=== PATIENT | female | born 1985 | race Caucasian/White ===

== ENCOUNTER 2016-11-18 02:26 | Inpatient (IN) | payer OTHER ==
[~2016-11-18] VITALS: Ht 170.2 cm; Wt 127.9 kg
[~2016-11-18 02:26] MED LIST: LEXAPRO10 M1 PO; PROTONIX40 M3 PO; XANAX0.5 M1 PO
--- NOTE | 2016-11-18 13:53 | Admission Core Measures ---
Admission Lab Results I reviewed the following labs: Laboratory Tests 11/18 758 Urines Urine Test NEGATIVE Admission Meds I reviewed the following Meds: Current Medications Sig/Precious Start time Last Medication Dose Stop Time Status Admin Cefazolin Sodium 2,000 MG ONCE 11/18 0000 NR (Kefzol-Ancef Inj) 11/18 2358 Dexamethasone 10 MG ONCE 11/18 NR (Decadron) 11/18 2358 Heparin Sodium 5,000 UNIT ONCE 11/18 NR (Porcine) 11/18 2358 Acute Coronary Syndrome Inclusion Criteria ACS Diagnosis No Inpatient Core Measures LDL Reminder: If No, please order W/I first 24hr of stay Congestive Heart Failure Inclusion Criteria CHF Diagnosis No Cerebrovascular accident Inclusion Criteria CVA/TIA Diagnosis No Inpatient Core Measures Bedside Swallow Eval Reminder: If BSE failed, place ST order Antithrombotic Reminder: Order Antithrombotic Medication by end of day 2 Antithrombotic Reminder: Document Reason Antithrombotic Not ordered by end of day 2 AFIB/Flutter Reminder: If Present, add to problem list AFIB/Flutter Reminder: Order Anticoag Medication for pts with AFIB/Flutter Atherosclerosis Reminder: If Present, add to problem list LDL Reminder: If No, please order W/I first 24hr of stay PT Order Reminder: If No, please order Venous thromboembolism Inpatient Core Measures VTE Risk Factors: Obesity, Surgery [facility] prophylaxis d/t No contraindications No VTE Pharm Prophylaxis d/t No contraindications Inclusion Criteria - Per Current guidelines, there needs to be overlap - treatment for the first 5 days of Warfarin therapy. - Parenteral Anticoagulation (IV or SC) needs to be - given along with Warfarin therapy. VTE Diagnosis No VTE Type NONE VTE Confirmed by (Test) NONE Problem List As ranked by this Provider includes Assessment & Plan 1. S/P gastric bypass HOME MEDS Home Med List Alprazolam (Xanax) 0.5 MG TABLET 1 TAB PO DAILY NEEDED ANXIETY (Reported) Escitalopram Oxalate (Lexapro) 10 MG TABLET 1.5 TAB PO DAILY ANXIETY ( Reported) Pantoprazole Sodium (Protonix) 40 MG TABLET.DR 1 TAB PO DAILY GERD (Reported)
--- NOTE | 2016-11-18 14:09 | Operative Report ---
Operative/Inv Procedure Report Surgery Date: 11/18/16 Name of Procedure: Laparoscopic Jeanne-en-Y gastric bypass Pre-Operative Diagnosis: Severe morbid obesity BMI 47, sleep apnea and GERD Post-Operative Diagnosis: Severe morbid obesity BMI 47 sleep apnea and GERD Estimated Blood Loss: less than 50ml Surgeon/Production Planner Scheduler: JACEK EDWARD,BRITNEY Chiang MD first mate Anesthesia: general endotracheal tube Drains: A NORRIS drain was placed over the gastric bypass coming out the right upper quadrant. A second NORRIS drain was placed over the judgment ejection O anastomosis and brought at the right midabdomen. Specimens: No specimen Complications: Complication Condition: Stable Operative Indication: This is a 31-year-old female with a BMI of 47 sleep apnea and GERD was undergone workup and evaluation for laparoscopic Jeanne-en-Y gastric bypass. He understands risks potential complications which include bleeding infection deep venous thrombosis pulmonary embolism injury to the esophagus stomach small intestine large intestine. Among other potential complications possible mortality. There can also be small bowel obstruction. Operative/Procedure Note Note: The patient was brought into the operating room and placed in the operating room table in supine position. After the administration of general anesthesia the patient was prepped and draped in the sterile fashion. Local incision was made below the umbilicus down to the fascia. A transverse incision is made in the fashion of 0 Vicryl sutures placed in the fascia. A 12 mm blunt-tipped 400 is placed in the abdomen the abdomen was insufflated with CO2 gas. A 5 mm port is placed in the right upper quadrant 25 mm ports in the left upper quadrant. A 12 mm port is postoperative between the xiphoid and the umbilicus and a 12 mm port in the right midabdomen. The abdomen was insufflate with CO2 gas there were no adhesions. The fatty omentum was divided with a Harmonic scalpel up to the transverse colon and a portion of the gastrocolic ligament was taken down as well. The angle of Hiss was then taken down with the Harmonic or sinus incision device. The NG tube was removed from the stomach. Along the lesser curve of the stomach window was created in the perigastric technique. NG tube and all objects were removed from the esophagus and stomach. It was performed with approximately 4 cm from the GE junction with a purple cartridge 45 mm stapler. A second cartridge was fired 45 mm. The wall tube and passed down and the the 60 mm purple cartridge was a stapled alongside. Her firings of a 60 mm peripheral cartridge performed. In pouch was created. The stasis was achieved with electrocautery. Attention was paid to the transverse mesocolon which was elevated. Ligament of Treitz is identified in follow-up for 50 cm. No please created in the mesentery and a 10 cartridge was inserted closed fired along the dividing the small bowel. 2 hemoclips were placed on the edge of the distal small bowel. The distal limb or intended jeanne limb was brought medial and the biliopancreatic limb was placed lateral. An opening was created in the antimesenteric border of the Jeanne limb and opening was created in the anterior aspect of the stomach pouch. A purple cartridge 45 mm was inserted to 30 mm and both the small bowel and the stomach was closed and fired creating anastomosis. The angle of doom was closed with a 2-0 silk 2-0 Vicryl suture. There was a serosal tear approximately 5 cm from the gastrojejunal anastomosis site this was oversewn was sewn over with 2 interrupted 2-0 silk suture with the seromuscular layer. A gastrojejunal anastomosis is created and oversewn and closed over a bougie with a 20V lock absorbable suture. The air leak test is performed with both air under a layer of water and methylene blue. The small bowel is them run a total of 125 cm 2 clips were placed on the distal bowel one of the proximal. An opening is created in the antimesenteric border of the Jeanne limb and the biliopancreatic. A 10 cartridge 60 mm was inserted into the biliopancreatic limb from proximal to distal from the Jeanne limb from distal to proximal. The sutures placed in the remaining angle of the open bowel. A 10 cartridge was then inserted closed and fired the middle was closed with 3 interrupted 2-0 silk sutures. 6010 cartridge was used to staple across the anastomosis and close it. A 2-0 Tycron was then used to close the jejunojejunal mesentery. There was excellent hemostasis the one 4 x 4 was removed. A NORRIS was placed over the gastrojejunal brought out the right upper quadrant NORRIS was placed over the jejunojejunal and brought out the right midabdomen. Sharifa liver retractor was removed the ports removed under direct vision there was no evidence of bleeding. There is excellent hemostasis. . The umbilicus is closed with 2 interrupted 0 Vicryl sutures. Her sewn in with 2-0 nylon. Can was closed with 4-0 Monocryl. Steri-Strips in place and the wounds had surgical skin wound. The patient developed procedure well.
[2016-11-18 17:03] VITALS: BP 118/88
--- NOTE | 2016-11-18 21:55 | PN- Bariatrics ---
Subjective Subjective: POSTOP CHECK tolerating stg 1 diet, no n/v, no cp/sob, oob to bathroom, +voids, no belching, no flatus, pain controlled with meds Objective Vital Signs and I&Os Vital Signs Date Time Temp Pulse Resp B/P B/P Pulse O2 O2 Flow FiO2 Mean Ox Delivery Rate 11/19 2107 Room Air 11/18 1702 97 Nasal 1.0L Cannula 11/18 1702 97.8 66 18 118/88 97 Nasal 1.0L Cannula Physical Exam: GEN: NAD CARD: s1s2 RRR PULM: CTAB ABD: soft,obese, dressings with some bloody staining, jpx2-serosang drainage, ttp thoughout EXT: calves soft nt bl Current Medications: Current Medications Sig/Precious Start time Last Medication Dose Route Stop Time Status Admin Acetaminophen 1,000 MG .STK-MED ONE 11/18 725 DC IV 11/18 726 Acetaminophen/ 15 ML Q6P PRN 11/18 1700 AC Hydrocodone Bitart PO Alprazolam 0.5 MG TID PRN 11/18 1415 AC PO 11/25 1414 Cefazolin Sodium 1,000 MG IQ8 11/18 1600 AC 11/18 IV 11/19 0001 1932 Cefazolin Sodium 2,000 MG ONCE 11/18 0000 DC IV 11/18 235 Dexamethasone 10 MG ONCE 11/18 0000 DC IV 11/18 235 Escitalopram Oxalate 15 MG DAILY 11/19 1000 AC PO Fentanyl Citrate 250 MCG .STK-MED ONE 11/18 725 DC IM 11/18 07 Heparin Sodium 5,000 UNIT Q8 11/18 1400 AC 11/18 (Porcine) SC 210 Heparin Sodium 5,000 UNIT ONCE 11/18 0000 DC (Porcine) SC 11/18 235 Hydromorphone HCl 1 MG Q4P PRN 11/18 1700 AC 05 IV 2109 Midazolam HCl 2 MG .STK-MED ONE 11/18 725 DC IM 11/18 726 Ondansetron HCl 4 MG Q6P PRN 11/18 1700 AC IV Ondansetron HCl 8 MG .STK-MED ONE 11/18 725 DC IM 11/18 07 Pantoprazole Sodium 40 MG DAILY 11/19 1000 AC IV Potassium Chloride 20 MEQ .Q8H 11/18 1700 AC 11/18 Dextrose/Sodium 1,000 ML IV 1713 Chloride Simethicone 40 MG Q6P PRN 11/18 1700 AC PO Assessment/Plan Assessment/Plan A: POD0 sp lap dread-en-y gastric bypass, with postop pain, stable. P: stage 1 wanda diet, npo pmn, ugi in am, advance if UGI ok hep sq prn pain meds oob, ambulate dc planning Core Measures/Miscellaneous Venous Thromboembolism VTE Risk Factors: Surgery VTE Contraindications: No Contraindications VTE Diagnosis: No VTE Type: NONE VTE Confirmed by (Test): NONE Beta Ritu Is Beta Ritu a Home Med? No Antibiotics Is Patient on Antibiotics? Yes If Yes: prophylaxis
[2016-11-18 21:59] VITALS: BP 136/84
[2016-11-19 01:11] VITALS: BP 130/89
--- NOTE | 2016-11-19 07:58 | PN- Bariatrics ---
See Addendum Subjective Subjective: She reports more pain than she anticipated. She has been out of bed, ambulating. Currently npo for upper gi study. Objective Vital Signs and I&Os Vital Signs Date Time Temp Pulse Resp B/P B/P Pulse O2 O2 Flow FiO2 Mean Ox Delivery Rate 11/19 0111 98.0 65 22 130/89 95 Room Air 11/18 2159 97.8 73 20 136/84 95 Nasal Cannula 11/18 2108 Room Air 11/18 2100 95 Room Air 11/18 170 97 Nasal 1.0L Cannula 11/18 170 97.8 66 18 118/88 97 Nasal 1.0L Cannula 11/18 170 97 Nasal 1.0L Cannula Intake & Output 11/19 0800 11/19 0000 11/18 1600 11/18 0800 11/18 0000 11/17 1600 Intake Total 4190 Output Total 588 Balance 3602 Intake, IV 3950 Intake, Oral 240 Output, 188 Drainage Output, Urine 400 Patient 282 lb Weight Weight Reported by Patient Measurement Method Current Medications: Current Medications Sig/Precious Start time Last Medication Dose Route Stop Time Status Admin Acetaminophen/ 15 ML Q6P PRN 11/18 1700 AC Hydrocodone Bitart PO Alprazolam 0.5 MG TID PRN 11/18 1415 AC PO 11/25 1414 Cefazolin Sodium 1,000 MG 0330 11/19 0330 DC 11/19 IV 11/19 0331 0406 Cefazolin Sodium 1,000 MG IQ8 11/18 1600 DC 11/18 IV 11/19 0001 1932 Cefazolin Sodium 2,000 MG ONCE 11/18 0000 DC IV 11/18 2359 Dexamethasone 10 MG ONCE 11/18 0000 DC IV 11/18 2359 Escitalopram Oxalate 15 MG DAILY 11/19 1000 AC PO Heparin Sodium 5,000 UNIT Q8 11/18 1400 AC 11/19 (Porcine) SC 0514 Heparin Sodium 5,000 UNIT ONCE 11/18 0000 DC (Porcine) SC 11/18 2359 Hydromorphone HCl 1 MG Q4P PRN 11/18 1700 AC 11/19 IV 0701 Ondansetron HCl 4 MG Q6P PRN 11/18 1700 AC IV Pantoprazole Sodium 40 MG DAILY 11/19 1000 AC IV Potassium Chloride 20 MEQ Q8H 11/19 0200 AC 11/19 Dextrose/Sodium 1,000 ML IV 0217 Chloride Potassium Chloride 20 MEQ .Q8H 11/18 1700 DC 11/18 Dextrose/Sodium 1,000 ML IV 1713 Chloride Simethicone 40 MG Q6P PRN 11/18 1700 AC PO Results Last 48 Hours of Labs: Laboratory Tests 11/19 11/18 0722 0759 Chemistry Sodium Pending Potassium Pending Chloride Pending Carbon Dioxide Pending Anion Gap Pending BUN Pending Creatinine Pending BUN/Creatinine Ratio Pending Hematology CBC w Diff Pending WBC Pending RBC Pending Hgb Pending Hct Pending MCV Pending MCH Pending RDW Pending Plt Count Pending MPV Pending PUBS MCHC Pending Urines Urine Test NEGATIVE Assessment/Plan Assessment/Plan This 31 year old male with hx severe morbid obesity (bmi 47), conrado, gerd, who is now POD#1 s/p laparoscopic Jeanne-en-Y gastric bypass currently npo awaiting upper gi study resume stage 1 bariatric diet once upper gi study reviewed pain control as ordered f/u labs and upper gi study protonix - gi ppx hep sc - dvt ppx oob/ambulation encouraged patient seen & examined with Core Measures/Miscellaneous Venous Thromboembolism VTE Risk Factors: Surgery VTE Contraindications: No Contraindications VTE Diagnosis: No VTE Type: NONE VTE Confirmed by (Test): NONE Beta Ritu Is Beta Ritu a Home Med? No Antibiotics Is Patient on Antibiotics? Yes If Yes: prophylaxis
[2016-11-19 08:06] VITALS: BP 132/92
[2016-11-19 08:39] LABS: ABSOLUTE BASOPHIL COUNT 0 /CUMM (0.0-0.2); ABSOLUTE EOSINOPHIL COUNT 0 /CUMM (0.0-0.7); ABSOLUTE GRANULOCYTE CT 10.6 /CUMM (1.4-6.5); ABSOLUTE LYMPH COUNT 1.6 /CUMM (1.2-3.4); ABSOLUTE MONOCYTE COUNT 0.7 /CUMM (0.10-0.60); BASOPHIL % 0.2 % (0.0-2.0); EOSINOPHIL % 0.1 % (0-5); GRANULOCYTE % 81.7 % (42.2-75.2); HEMATOCRIT 34.6 % (37-47); MEAN CORPUSCULAR HGB 26.6 PG (27.0-31.0); MEAN CORPUSCULAR HGB CONC 32.5 G/DL (33.0-37.0); MEAN CORPUSCULAR VOLUME 81.6 FL (81.0-99.0); MEAN PLATELET VOLUME 9.6 FL (7.4-10.4); PLATELET COUNT 223 /CUMM (130-400); RBC DISTRIBUTION WIDTH 15.4 % (11.5-14.5); RED BLOOD CELL CT 4.24 /CUMM (4.20-5.40)
--- NOTE | 2016-11-19 09:50 | Surg Short-stay <48hrs Dis Sum ---
Visit Information Visit Dates Admission Date: 11/18/16 Discharge Date: 11/20/16 Surgical Short Stay DC Summary Admission Diagnosis: Severe morbid obesity (BMI 47), sleep apnea and GERD Final Diagnosis: same, s/p Laparoscopic Jeanne-en-Y gastric bypass Procedure(s): Surgery Date: 11/18/16 Name of Procedure: Laparoscopic Jeanne-en-Y gastric bypass Summary/Significant Findings: Electively scheduled laparoscopic Jeanne-en-Y gastric bypass on 11/18/[address]Neil Unger for hx severe morbid obesity (bmi 47), sleep apnea, and GERD. Upper gi study done on post-op day #1 to rule out leak / obstruction. Restarted on a stage 1 bariatric diet. NORRIS drains were removed prior to discharge to home. No lovenox indicated at the time of discharge. Condition at Discharge: stable Discharge Disposition: home or self care Discharge instructions provided to patient/family: Yes Post discharge follow-up plan: one week follow up visit with Dr.Neil Unger discharge instructions provided
--- NOTE | 2016-11-19 10:03 | Patient Discharge Instructions ---
Discharge Instructions General Discharge Information You were seen/treated for: Severe morbid obesity (BMI 47), sleep apnea and GERD You had these procedures: Surgery Date: 11/18/16 Name of Procedure: Laparoscopic Jeanne-en-Y gastric bypass Watch for these problems: fever>101.3, increased pain, redness/swelling/drainage, dizziness, shortness of breath, chest pain No bath, but you may shower: Yes Other wound care: ok to remove outer dressings. leave white steri strips in place. expect drainage and use dry guaze dressing over previous drain site. Diet Continue normal diet: No Recommended Diet: Bariatric Additional DIET Information: weekly bariatric stage diet advancements as tolerated, as directed Activity Full Activity/No Limits: No Activity Self Limited: Yes Pounds, do NOT lift more than: 10 Other activity limits: no heavy lifting. no strenuous activity. Acute Coronary Syndrome Inclusion Criteria At DC or during hospital stay patient has or had the following: ACS DIAGNOSIS No Discharge Core Measures Meds if any: Prescribed or Continued at Discharge Meds if any: NOT Prescribed or Continued at Discharge Congestive Heart Failure Inclusion Criteria At DC or during hospital stay patient has or had the following: CHF DIAGNOSIS No Discharge Core Measures Meds if any: Prescribed or Continued at Discharge Meds if any: NOT Prescribed or Continued at Discharge Cerebrovascular accident Inclusion Criteria At DC or during hospital stay patient has or had the following: CVA/TIA Diagnosis No Discharge Core Measures Meds if any: Prescribed or Continued at Discharge Meds if any: NOT Prescribed or Continued at Discharge Venous thromboembolism Inclusion Criteria VTE Diagnosis No VTE Type NONE VTE Confirmed by (Test) NONE Discharge Core Measures - Per Current guidelines, there needs to be overlap - treatment for the first 5 days of Warfarin therapy. - If discharged on Warfarin prior to 5 days of - overlap therapy, the patient will need to be - assessed for post discharge needs including - *Post discharge parental anticoagulation - *Warfarin and/or parental anticoagulation education - *Follow up date to check INR post discharge At least 5 days overlap therapy as Inpatient No Meds if any: Prescribed or Continued at Discharge Note: Overlap Therapy is Warfarin and Anticoagulant Meds if any: NOT Prescribed or Continued at Discharge
[2016-11-19] MEDS ORDERED: HYDROCODON-ACET15 ML PO (10:04)
--- NOTE | 2016-11-19 10:29 | RADIOLOGY REPORT ---
EXAMINATION: FL UPPER GI SERIES CLINICAL INFORMATION: 31-year-old female status post gastric bypass surgery. COMPARISON: None TECHNIQUE: A single contrast upper GI series with fluoroscopy and spot imaging was performed. The patient ingested 30 mL of Gastroview contrast material without difficulty and was evaluated in the upright and recumbent positions. FINDINGS: The initial abdominal radiographs showed mild gaseous distention of bowel. Multiple surgical clips are present within the epigastric region and left abdomen. Drainage catheters project over the epigastric region and left mid abdomen. Intrauterine contraceptive device is present within the pelvis. Normal esophageal motility was observed with patient in the upright position. There was no significant delay in passage of contrast material through the gastric pouch, across the intact gastrojejunal anastomosis and into the nondilated jejunum. No contrast leakage into the peritoneal cavity. FLUOROSCOPY TIME: 27 seconds NUMBER OF IMAGES: 10 spot fluoroscopy images were saved in the electronic picture archive. IMPRESSION: Normal postoperative appearance of the gastric bypass with intact appearance of the gastrojejunal anastomosis. No contrast leakage.
[2016-11-19 15:06] VITALS: BP 132/92
[2016-11-19 22:29] VITALS: BP 120/70
[2016-11-20 07:15] VITALS: BP 118/68
--- NOTE | 2016-11-20 07:21 | PN- Bariatrics ---
Subjective Subjective: No complaints. Pain improving. Upper gi study negative for leak / obstruction yesterday. Tolerating stage 1 bariatric diet. No nausea. Passing flatus. +bm. Ambulating well. No dizziness. No shortness of breath. No chest pains. Voiding well. Objective Vital Signs and I&Os Vital Signs Date Time Temp Pulse Resp B/P B/P Pulse O2 O2 Flow FiO2 Mean Ox Delivery Rate 11/20 714 98.1 74 20 118/68 98 Room Air 11/19 2229 98.7 71 18 120/70 97 Room Air 11/19 1506 98.8 78 20 132/92 93 Room Air 11/19 0806 98.1 78 20 132/92 93 Room Air 11/19 0800 98 Room Air Intake & Output 11/20 0800 11/20 0000 11/19 1600 11/19 0800 11/19 0000 11/18 1600 Intake Total 400 1400 1050 4190 Output Total 90 600 110 588 Balance 310 465 791 7302 Intake, IV 095 142 1144 3950 Intake, Oral 600 0 240 Number 1 0 Bowel Movements Output, 90 110 188 Drainage Output, Urine 600 400 Patient 282 lb Weight Weight Reported by Patient Measurement Method Physical Exam: General - alert & oriented x 3. comfortable. no acute distress. Lungs - clear bilaterally. no w/r/r. Cardiac - s1s2. reg. Abdomen - soft. dressings c/d/i. expected mary-incisional tenderness. NORRIS drains with serosang drainage. Extremities - warm bilaterally. no c/c/e. calves soft and nontender b/l. Current Medications: Current Medications Sig/Precious Start time Last Medication Dose Route Stop Time Status Admin Acetaminophen/ 15 ML Q6P PRN 11/18 1700 AC 11/19 Hydrocodone Bitart PO 0917 Alprazolam 0.5 MG TID PRN 11/18 1415 AC PO 11/25 1414 Escitalopram Oxalate 15 MG DAILY 11/19 1000 AC 11/19 PO 0917 Heparin Sodium 5,000 UNIT Q8 11/18 1400 AC 11/20 (Porcine) SC 0621 Hydromorphone HCl 1 MG Q4P PRN 11/18 1700 AC 11/19 IV 1208 Ketorolac 30 MG Q6H 11/19 2200 AC 11/20 Tromethamine IV 0440 Ketorolac 30 MG Q6 11/19 1330 DC 11/19 Tromethamine IV 1559 Ondansetron HCl 4 MG Q6P PRN 11/18 1700 AC IV Pantoprazole Sodium 40 MG DAILY 11/19 1000 AC 11/19 IV 0917 Patient Medication 1 ED .STK-MED ONE 11/19 1420 DC Teaching ED 11/19 1421 Potassium Chloride 20 MEQ Q10H 11/19 0845 AC 11/20 Dextrose/Sodium 1,000 ML IV 0510 Chloride Potassium Chloride 20 MEQ Q8H 11/19 0200 DC 11/19 Dextrose/Sodium 1,000 ML IV 0217 Chloride Simethicone 40 MG Q6P PRN 11/18 1700 AC PO Results Last 48 Hours of Labs: Laboratory Tests 11/19 11/18 0722 0759 Chemistry Sodium (137 - 145 mmol/L) 138 Potassium (3.5 - 5.1 mmol/L) 3.9 Chloride (98 - 107 mmol/L) 106 Carbon Dioxide (22 - 30 mmol/L) 24 Anion Gap (5 - 16) 8 BUN (7 - 17 mg/dL) 9 Creatinine (0.5 - 1.0 mg/dL) 0.5 Estimated GFR (>60 ml/min) > 60 BUN/Creatinine Ratio (7 - 25 %) 18.0 Hematology CBC w Diff NO MAN DIFF REQ WBC (4.8 - 10.8 /CUMM) 13.0 H RBC (4.20 - 5.40 /CUMM) 4.24 Hgb (12.0 - 16.0 G/DL) 11.3 L Hct (37 - 47 %) 34.6 L MCV (81.0 - 99.0 FL) 81.6 MCH (27.0 - 31.0 PG) 26.6 L RDW (11.5 - 14.5 %) 15.4 H Plt Count (130 - 400 /CUMM) 223 MPV (7.4 - 10.4 FL) 9.6 Gran % (42.2 - 75.2 %) 81.7 H Lymphocytes % (20.5 - 51.1 %) 12.7 L Monocytes % (1.7 - 9.3 %) 5.3 Eosinophils % (0 - 5 %) 0.1 Basophils % (0.0 - 2.0 %) 0.2 Absolute Granulocytes (1.4 - 6.5 /CUMM) 10.6 H Absolute Lymphocytes (1.2 - 3.4 /CUMM) 1.6 Absolute Monocytes (0.10 - 0.60 /CUMM) 0.7 H Absolute Eosinophils (0.0 - 0.7 /CUMM) 0 Absolute Basophils (0.0 - 0.2 /CUMM) 0 PUBS MCHC (33.0 - 37.0 G/DL) 32.5 L Urines Urine Test NEGATIVE Assessment/Plan Assessment/Plan This 31 year old male with hx severe morbid obesity (bmi 47), conrado, gerd, who is now POD#2 s/p laparoscopic Jeanne-en-Y gastric bypass tolerating stage 1 bariatric diet pain controlled oob/ambulating well hep sc - dvt ppx protonix - gi ppx NORRIS drains removed d/c home today will d/w Core Measures/Miscellaneous Venous Thromboembolism VTE Risk Factors: Surgery VTE Contraindications: No Contraindications VTE Diagnosis: No VTE Type: NONE VTE Confirmed by (Test): NONE Beta Ritu Is Beta Ritu a Home Med? No Antibiotics Is Patient on Antibiotics? Yes If Yes: prophylaxis
== END 2016-11-20 13:10 | DRG 621 ==
LOC: SDA 02:26 → 2NB 02:26 → SDA 07:00 → ENRESERV 14:45 → ENTRNSPT 15:43 → 2NB 16:45 → CMPTRNSPT 18:37 → ENPENDDIS 11-20 07:24 → 2NB 11-20 13:10
PROVIDERS: Physician Assistant Surgical; ADMIT Surgery
PROC: 0D164ZA Bypass Stomach to Jejunum, Percutaneous Endoscopic Approach (ICD-10-PCS; principal; 2016-11-18)
PROC: 3E0T3BZ Introduction of Anesthetic Agent into Peripheral Nerves and Plexi, Percutaneous Approach (ICD-10-PCS; 2016-11-18)
DX: E66.01 Morbid (severe) obesity due to excess calories (principal); F41.9 Anxiety disorder, unspecified; Z68.42 Body mass index [BMI] 45.0-49.9, adult; K21.9 Gastro-esophageal reflux disease without esophagitis; G47.33 Obstructive sleep apnea (adult) (pediatric)
CPT/HCPCS: 2NSBP; 74240; 81025; 82436; J0131; J0690; J1100; J1170; J1644; J1885; J2405; J7042; Q9968; S5012